=== PATIENT | female | born 1975 | race Hispanic/Latino ===

== ENCOUNTER 2019-11-19 09:35 | Emergency (ER) | payer SELFPAY ==
[~2019-11-19] VITALS: Ht 160 cm; Wt 68.0 kg
[2019-11-19] MEDS ORDERED: PANTOPRAZOLE 40 MG 10ML VIAL IV STA (09:56)
[2019-11-19] MEDS ORDERED: MORPHINE SULFATE 2 MG/ML SYR 1ML IV STA (09:56)
[2019-11-19] MEDS ORDERED: ONDANSETRON HCL INJ 2MG/ML 2ML 2 MG/ML VIAL IV STA (09:56)
[2019-11-19] MEDS ORDERED: SODIUM CHLORIDE 0.9% 1000ML 1,000 ML IV STA (09:56)
[2019-11-19 10:16] LABS: BASOPHILS % 0.2 % (0.0-1.0); EOSINOPHILS % 0.2 % (0.0-6.0); HEMATOCRIT 40.7 % (34.2-44.1); HEMOGLOBIN 13.4 g/dL (12.0-16.0); LYMPHOCYTES # (AUTO) 0.8 (1.0-3.2); LYMPHOCYTES % 8.1 % (18.0-39.1); MEAN CORPUSCULAR HEMOGLOBIN 30.7 pg (28-32); MEAN CORPUSCULAR HGB CONC 32.9 g/dL (31-35); MEAN CORPUSCULAR VOLUME 93.3 fL (81-99); MONOCYTES # (AUTO) 0.3 (0.2-0.8); MONOCYTES % 3.1 % (4.4-11.3); NEUTROPHILS # (AUTO) 8.5 (2.1-6.9); NEUTROPHILS % 86.8 % (38.7-80.0); PLATELET COUNT 219 x10e3/uL (140-360); RED BLOOD COUNT 4.36 x10e6/uL (3.6-5.1)
[2019-11-19 10:22] LABS: PREGNANCY TEST, URINE NEGATIVE (NEGATIVE)
[2019-11-19 10:25] LABS: CLARITY,URINE CLEAR (CLEAR); COLOR,URINE YELLOW (YELLOW); LEUKOCYTE ESTERASE ,URINE NEGATIVE (NEGATIVE); NITRITE,URINE NEGATIVE (NEGATIVE)
[2019-11-19 10:26] LABS: BILIRUBIN,URINE NEGATIVE (NEGATIVE); KETONES,URINE NEGATIVE (NEGATIVE); PROTEIN,URINE DIPSTICK NEGATIVE (NEGATIVE); URINE UROBILINOGEN 0.2 mg/dL (0.2 - 1)
[2019-11-19 10:36] LABS: ALANINE AMINOTRANSFERASE 18 IU/L (0-55); ALKALINE PHOSPHATASE 104 IU/L (40-150); AMYLASE 108 U/L (25-125); ANION GAP 13.8 mmol/L (8-16); BLOOD UREA NITROGEN 19 mg/dL (7-26); BUN/CREATININE RATIO 25 (6-25); CALCIUM 9.2 mg/dL (8.4-10.2); CARBON DIOXIDE 25 mmol/L (22-29); CHLORIDE 106 mmol/L (98-107); CREATINE KINASE 48 IU/L (29-168); CREATININE, SERUM 0.76 mg/dL (0.57-1.11); EST GLOMERULAR FILTRATION RATE > 60 ML/MIN (60-); GLUCOSE 157 mg/dL (74-118); LIPASE 91 U/L (8-78); MAGNESIUM 1.8 MG/DL (1.3-2.1); POTASSIUM 3.8 mmol/L (3.5-5.1); SODIUM 141 mmol/L (136-145)
[2019-11-19 10:38] LABS: BACTERIA,URINE MANY /HPF
[2019-11-19 10:39] LABS: EPITHELIAL CELLS,URINE MODERATE /LPF; MUCUS,URINE MANY (RARE)
[2019-11-19 10:44] LABS: INR 0.9; PARTIAL THROMBOPLASTIN TIME 26.1 seconds (23.8-35.5); PROTHROMBIN TIME 12.6 seconds (11.9-14.5)
--- NOTE | 2019-11-19 11:56 | Diagnostic Imaging Report ---
EXAM: Right upper quadrant abdominal ultrasound INDICATION: Right upper quadrant pain COMPARISON: None. TECHNIQUE: Transverse and longitudinal images of the right upper quadrant abdomen were obtained FINDINGS: Liver: Size: 14.3 cm in the right midclavicular line, normal Appearance: Normal echogenicity, smooth contour Mass: No focal masses Gallbladder: Cholelithiasis. No distention, pericholecystic fluid, wall thickening, or reported sonographic Magallanes's sign. Gallbladder wall measures 0.2 cm. Bile Ducts: Intrahepatic Ducts: No dilatation Extrahepatic Ducts: Common bile duct measures 0.4 cm, no dilatation Pancreas: Visualized portions of the pancreatic head, neck and proximal body are normal. Kidney: The right kidney measures 8.9 cm without evidence of hydronephrosis or stone. Vessels: Aorta: Visualized portions are normal Inferior Vena Cava: Visualized portions are normal Main Portal Vein: 1.1 cm, normal size with hepatopetal flow. Free Fluid: No evidence of ascites. IMPRESSION: Cholelithiasis without evidence of cholecystitis. Signed by: Dr. Tyesha Cardenas MD on 11/19/2019 11:53 AM
--- NOTE | 2019-11-19 12:47 | Emergency Department Note ---
History of Present Illnes History of Present Illness Chief Complaint: Abdominal Complaints History of Present Illness This is a 44 year old female PT C/O CHILLS AND ABDOMINAL PAIN WITH ASSOCIATED NAUSEA AND VOMITING THAT STARTED IN THE MIDDLE OF THE NIGHT LAST NIGHT, PT DENIES ANY ACUTE CHANGES WITH HER URINATION, LBM TODAY WAS AN HOUR AGO, PEPTO-BISMOL WAS TAKEN @ 0700 THIS MORNING . 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 Any updates have been documented here. Past Medical History Recent Fever: No Clinical Suspicion of Infectio: No New/Unexplained Change in Ment: No Past Medical History: None Past Surgical History: None Social History Smoking Cessation: Never Smoker Counseling Performed: No Alcohol Use: None Any Illegal Drug Use: No TB Exposure/Symptoms: No Physically hurt or threatened: No Family History Family history of heart diseas: No Other Any Pre-Existing Lines (PICC,: No Review of Systems Review of Systems Constitutional: Reports no symptoms EENTM: Reports no symptoms Cardiovascular: Reports no symptoms Respiratory: Reports no symptoms Gastrointestinal: Reports as per HPI, Reports nausea, Reports vomiting; Denies diarrhea Genitourinary: Reports no symptoms Musculoskeletal: Reports no symptoms Integumentary: Reports no symptoms Neurological: Reports no symptoms Psychological: Reports no symptoms Endocrine: Reports no symptoms Hematological/Lymphatic: Reports no symptoms Physical Exam Related Data Allergies: Coded Allergies: No Known Allergies (Unverified , 11/19/19) Triage Vital Signs Vital Signs Date Time Temp Pulse Resp B/P (MAP) Pulse Ox O2 Delivery O2 Flow Rate FiO2 11/19/19 09:42 98.0 76 18 134/87 100 Room Air Vital signs reviewed: Yes Physical Exam CONSTITUTIONAL Constitutional: Present well-developed, Present well-nourished, Present obese HENT HENT: Present normocephalic, Present atraumatic, Present oropharynx cl ear/moist, Present nose normal HENT L/R: Present left ext ear normal, Present right ext ear normal EYES Eyes: Reports PERRL, Reports conjunctivae normal NECK Neck: Present ROM normal PULMONARY Pulmonary: Present effort normal, Present breath sounds normal CARDIOVASCULAR Cardiovascular: Present regular rhythm, Present heart sounds normal, Present capillary refill normal, Present normal rate GASTROINTESTINAL Abdominal: Present soft, Present bowel sounds normal, Present tender (MOD TENDERNESS RUQ WITHOUT R/G/DELUNA'S) GENITOURINARY Genitourinary: Present exam deferred SKIN Skin: Present warm, Present dry MUSCULOSKELETAL Musculoskeletal: Present ROM normal NEUROLOGICAL Neurological: Present alert, Present oriented x 3, Present no gross motor or sensory deficits PSYCHOLOGICAL Psychological: Present mood/affect normal, Present judgement normal Results Laboratory Result Diagram: 11/19/19 0900 11/19/19 0900 Laboratory Laboratory Tests Test 11/19/19 09:00 White Blood Count 9.82 x10e3/uL (4.8-10.8) Red Blood Count 4.36 x10e6/uL (3.6-5.1) Hemoglobin 13.4 g/dL (12.0-16.0) Hematocrit 40.7 % (34.2-44.1) Mean Corpuscular Volume 93.3 fL (81-99) Mean Corpuscular Hemoglobin 30.7 pg (28-32) Mean Corpuscular Hemoglobin Concent 32.9 g/dL (31-35) Red Cell Distribution Width 13.0 % (11.7-14.4) Platelet Count 219 x10e3/uL (140-360) Neutrophils (%) (Auto) 86.8 % (38.7-80.0) Lymphocytes (%) (Auto) 8.1 % (18.0-39.1) Monocytes (%) (Auto) 3.1 % (4.4-11.3) Eosinophils (%) (Auto) 0.2 % (0.0-6.0) Basophils (%) (Auto) 0.2 % (0.0-1.0) Neutrophils # (Auto) 8.5 (2.1-6.9) Lymphocytes # (Auto) 0.8 (1.0-3.2) Monocytes # (Auto) 0.3 (0.2-0.8) Eosinophils # (Auto) 0.0 (0.0-0.4) Basophils # (Auto) 0.0 (0.0-0.1) Absolute Immature Granulocyte (auto 0.16 x10e3/uL (0-0.1) Prothrombin Time 12.6 seconds (11.9-14.5) Prothromb Time International Ratio 0.90 Activated Partial Thromboplast Time 26.1 seconds (23.8-35.5) Urine Color Yellow (YELLOW) Urine Clarity Clear (CLEAR) Urine pH 6 (5 - 7) Urine Specific [place] >=1.030 (1.010-1.025) Urine Protein Negative (NEGATIVE) Urine Glucose (UA) Negative (NEGATIVE) Urine Ketones Negative (NEGATIVE) Urine Blood Small (NEGATIVE) Urine Nitrite Negative (NEGATIVE) Urine Bilirubin Negative (NEGATIVE) Urine Urobilinogen 0.2 mg/dL (0.2 - 1) Urine Leukocyte Esterase Negative (NEGATIVE) Urine RBC 6-10 /HPF (0-5) Urine WBC 6-10 /HPF (0-5) Urine Epithelial Cells Moderate /LPF (NONE) Urine Bacteria Many /HPF (NONE) Urine Mucus Many (RARE) Urine Test Negative (NEGATIVE) Sodium Level 141 mmol/L (136-145) Potassium Level 3.8 mmol/L (3.5-5.1) Chloride Level 106 mmol/L (98-107) Carbon Dioxide Level 25 mmol/L (22-29) Anion Gap 13.8 mmol/L (8-16) Blood Urea Nitrogen 19 mg/dL (7-26) Creatinine 0.76 mg/dL (0.57-1.11) Estimat Glomerular Filtration Rate > 60 ML/MIN (60-) BUN/Creatinine Ratio 25 (6-25) Glucose Level 157 mg/dL (74-118) Calcium Level 9.2 mg/dL (8.4-10.2) Magnesium Level 1.8 MG/DL (1.3-2.1) Total Bilirubin 0.6 mg/dL (0.2-1.2) Aspartate Amino Transf (AST/SGOT) 17 IU/L (5-34) Alanine Aminotransferase (ALT/SGPT) 18 IU/L (0-55) Alkaline Phosphatase 104 IU/L (40-150) Creatine Kinase 48 IU/L (29-168) Creatine Kinase MB 0.70 ng/mL (0-5.0) Troponin I < 0.001 ng/mL (0-0.300) Total Protein 7.9 g/dL (6.5-8.1) Albumin 4.0 g/dL (3.5-5.0) Globulin 3.9 g/dL (2.3-3.5) Albumin/Globulin Ratio 1.0 (0.8-2.0) Amylase Level 108 U/L (25-125) Lipase 91 U/L (8-78) Lab results reviewed: Yes Imaging Imaging results reviewed: Yes Assessment & Plan Medical Decision Making MDM RUQ PAIN, N/V - CBC, CHEM, KAYLIE/LIPASE, UA, GB U/S - R/O CHOLECYSTITIS, PANCREATITIS, ELEV LFT'S, LEUKOCYTOSIS Reassessment Reassessment LIA ROSS, JANE AARON, F/U PCP AND DR BENNETT Assessment & Plan Final Impression: (1) Cholelithiases Depart Disposition: HOME, SELF-CARE Last Vital Signs Date Time Temp Pulse Resp B/P (MAP) Pulse Ox O2 Delivery O2 Flow Rate FiO2 11/19/19 11:40 74 16 154/80 98 Room Air 11/19/19 09:42 98.0 Medications in the ED Pantoprazole Sodium 40 mg ONCE STAT IV Last administered on 11/19/19at 10:57; Admin Dose 40 MG; Start 11/19/19 at 09:56; Stop 11/19/19 at 10:14; Status DC Morphine Sulfate 4 mg ONCE STAT IV Last administered on 11/19/19at 10:30; Admin Dose 4 MG; Start 11/19/19 at 09:56; Stop 11/19/19 at 10:14; Status DC Ondansetron HCl 4 mg ONCE STAT IV Last administered on 11/19/19at 10:30; Admin Dose 4 MG; Start 11/19/19 at 09:56; Stop 11/19/19 at 10:14; Status DC Sodium Chloride 1,000 ml @ 0 mls/hr Q0M STAT IV Last administered on 11/19/19at 10:58; Admin Dose 1,000 MLS/HR; Start 11/19/19 at 09:56; Stop 11/19/19 at 10:01; Status DC SARAH KEBEDE MD Nov 19, 2019 12:47
== END 2019-11-19 12:48 | disposition home or self-care (01) ==
LOC: ER 09:58
DX: R10.11 Right upper quadrant pain (principal); R11.2 Nausea with vomiting, unspecified; K80.20 Calculus of gallbladder without cholecystitis without obstruction
CPT/HCPCS: 36415; 76705; 80053; 81001; 81025; 82150; 82550; 82553; 83690; 83735; 84484; 85025; 85610; 85730; 87086; 93005; 99284; C9113; J2270; J2405; J7030

== ENCOUNTER 2019-12-01 13:24 | Observation (INO) | payer SELFPAY ==
[~2019-12-01] VITALS: Ht 160 cm; Wt 68.0 kg
[~2019-12-01 13:24] MED LIST: FENTANYL CITRATE/PF 100MCG/2 ML INJ ONE; MIDAZOLAM HCL 2 MG/2 ML VIAL ONE
[2019-12-01] MEDS ORDERED: SODIUM CHLORIDE 0.9% 1000ML 1,000 ML IV SCH (14:00)
[2019-12-01] MEDS ORDERED: MORPHINE SULFATE 2 MG/ML SYR 1ML IV PRN (14:00)
--- NOTE | 2019-12-01 14:00 | Emergency Department Note ---
History of Present Illnes History of Present Illness Chief Complaint: General Medicine Complaints History of Present Illness This is a 44 year old female Chief Complaint Comment Patient in from home with complaints of midline abdominal pain, nausea and vomiting since 0600 this morning. Patient also complains of chills but denies fever at home and is afebrile in triage. Patient appears in pain. Patient was here for the same complaints on 11/19/2019 and states that the symptoms resolved and returned today. Historian: Patient Arrival Mode: Car Home Health Caregiver Required: No Onset (how long ago): hour(s) (8) Location: Epigastric, RUQ Quality: Sharp Radiation: Reports non-radiation Severity: severe Onset quality: sudden Duration (how long): hour(s) Timing of current episode: constant Progression: worsening Chronicity: recurrent Context: Denies recent illness, Denies recent surgery Relieving factors: none Exacerbating factors: none Associated symptoms: Reports denies other symptoms Treatments prior to arrival: none Past Medical/Family History Physician Review I have reviewed the patient's past medical and family history. Any updates have been documented here. Past Medical History Recent Fever: No Clinical Suspicion of Infectio: No New/Unexplained Change in Ment: No Past Medical History: None Past Surgical History: None Review of Systems Review of Systems Constitutional: Reports no symptoms EENTM: Reports no symptoms Cardiovascular: Reports no symptoms Respiratory: Reports no symptoms Gastrointestinal: Reports as per HPI, Reports abdominal pain, Reports nausea, Reports vomiting Genitourinary: Reports no symptoms Musculoskeletal: Reports no symptoms Integumentary: Reports no symptoms Neurological: Reports no symptoms Psychological: Reports no symptoms Endocrine: Reports no symptoms Hematological/Lymphatic: Reports no symptoms Physical Exam Related Data Allergies: Coded Allergies: No Known Allergies (Unverified , 11/19/19) Triage Vital Signs Vital Signs Date Time Temp Pulse Resp B/P (MAP) Pulse Ox O2 Delivery O2 Flow Rate FiO2 12/01/19 13:40 98.1 76 17 135/80 100 Room Air Vital signs reviewed: Yes Physical Exam CONSTITUTIONAL Constitutional: Present well-developed, Present well-nourished HENT HENT: Present normocephalic, Present atraumatic, Present oropharynx clear/moist, Present nose normal HENT L/R: Present left ext ear normal, Present right ext ear normal EYES Eyes: Reports PERRL, Reports conjunctivae normal NECK Neck: Present ROM normal PULMONARY Pulmonary: Present effort normal, Present breath sounds normal CARDIOVASCULAR Cardiovascular: Present regular rhythm, Present heart sounds normal, Present capillary refill normal, Present normal rate GASTROINTESTINAL Abdominal: Present soft, Present bowel sounds normal, Present tender (Epigastrium) GENITOURINARY Genitourinary: Present exam deferred SKIN Skin: Present warm, Present dry MUSCULOSKELETAL Musculoskeletal: Present ROM normal NEUROLOGICAL Neurological: Present alert, Present oriented x 3, Present no gross motor or sensory deficits PSYCHOLOGICAL Psychological: Present mood/affect normal, Present judgement normal Results Laboratory Lab results reviewed: Yes Imaging Imaging results reviewed: Yes Assessment & Plan Medical Decision Making MDM 44 y.o F PMH of galstones. Did not follow up from last visit. RUQ/epigastric pain. RUQ US and labs show cholelithiasis. Will admit for symptomatic chol elithiasis to Dr. Shay. Dr. Nilson palomo consulted. Reassessment Reassessment time: 16:32 Reassessment Well appearing, NAD Assessment & Plan Final Impression: (1) Cholelithiasis Depart Disposition: ADMITTED Last Vital Signs Date Time Temp Pulse Resp B/P (MAP) Pulse Ox O2 Delivery O2 Flow Rate FiO2 12/01/19 13:40 98.1 76 17 135/80 100 Room Air Medications in the ED Ondansetron HCl 4 mg Q4H PRN IV NAUSEA AND VOMITING; Start 12/01/19 at 14:00; Stop 12/31/19 at 13:59; Status UNV Sodium Chloride 1,000 ml @ 100 mls/hr Q10H IV ; Start 12/01/19 at 14:00; Stop 12/31/19 at 13:59; Status UNV Morphine Sulfate 4 mg Q4H PRN IV pain; Start 12/01/19 at 14:00; Stop 12/08/19 at 13:59; Status UNV MITCH GARZON MD Dec 01, 2019 14:00
[2019-12-01 14:12] LABS: BASOPHILS % 0.2 % (0.0-1.0); HEMATOCRIT 40.5 % (34.2-44.1); HEMOGLOBIN 13.1 g/dL (12.0-16.0); LYMPHOCYTES # (AUTO) 0.4 (1.0-3.2); LYMPHOCYTES % 4.5 % (18.0-39.1); MEAN CORPUSCULAR HEMOGLOBIN 30.2 pg (28-32); MEAN CORPUSCULAR HGB CONC 32.3 g/dL (31-35); MEAN CORPUSCULAR VOLUME 93.3 fL (81-99); MONOCYTES # (AUTO) 0.2 (0.2-0.8); MONOCYTES % 1.7 % (4.4-11.3); NEUTROPHILS # (AUTO) 8.3 (2.1-6.9); PLATELET COUNT 257 x10e3/uL (140-360); RED BLOOD COUNT 4.34 x10e6/uL (3.6-5.1); RED CELL DISTRIBUTION WIDTH 12.9 % (11.7-14.4)
[2019-12-01] MEDS: ONDANSETRON HCL INJ 2MG/ML 2ML 2 MG/ML VIAL IV PRN ×2 (14:12→17:31)
[2019-12-01] MEDS ORDERED: MORPHINE SULFATE INJ 4 MG/ML INJ 1ML IV PRN (14:15)
--- NOTE | 2019-12-01 14:28 | NUR ---
u.s in room at this time
[2019-12-01 14:36] LABS: ALANINE AMINOTRANSFERASE 22 IU/L (0-55); ALBUMIN/GLOBULIN RATIO 1.1 (0.8-2.0); ALKALINE PHOSPHATASE 103 IU/L (40-150); ANION GAP 12.9 mmol/L (8-16); BLOOD UREA NITROGEN 16 mg/dL (7-26); BUN/CREATININE RATIO 22 (6-25); CARBON DIOXIDE 22 mmol/L (22-29); CHLORIDE 107 mmol/L (98-107); CREATININE, SERUM 0.74 mg/dL (0.57-1.11); EST GLOMERULAR FILTRATION RATE > 60 ML/MIN (60-); GLUCOSE 158 mg/dL (74-118); POTASSIUM 3.9 mmol/L (3.5-5.1); SODIUM 138 mmol/L (136-145)
[2019-12-01 14:51] LABS: LIPASE 14 U/L (8-78)
--- NOTE | 2019-12-01 14:52 | Diagnostic Imaging Report ---
EXAM: US GALLBLADDER DATE: 12/01/2019 2:19 PM INDICATION: Right upper quadrant pain COMPARISON: Right upper quadrant ultrasound from 11/19/2019 FINDINGS: The pancreas is not well-visualized secondary to prominent overlying bowel gas. The visualized portions appear grossly unremarkable. The liver is normal in size measuring 13.7 cm in length. Hepatic echogenicity is within normal limits. No focal hepatic abnormality is identified. The main portal vein is patent with Diameter 0.9 cm, within normal limits. Again identified is a shadowing stone within the lumen of the gallbladder. There is no evidence for gallbladder distention, wall thickening, or pericholecystic fluid. There is no intra or extrahepatic biliary ductal dilatation. The common bile duct measures 4 mm. Sonographic Magallanes's sign is negative. The right kidney is normal in size measuring 8.4 cm in length with normal cortical thickness and echogenicity. There is no evidence for solid renal mass, hydronephrosis, or shadowing calculi within the right kidney. The visualized portions of the IVC and aorta are within normal limits. There is no ascites visualized within the right upper quadrant. IMPRESSION: Cholelithiasis without sonographic evidence for acute cholecystitis. Signed by: Dr. Timothy Martino MD on 12/01/2019 2:49 PM
[2019-12-01 14:58] LABS: HCG,QUANTITATIVE < 1.20 mIU/mL (0-10)
--- OUTSIDE RECORDS SUMMARY | 2019-12-01 15:06 | XMS REPORT | Continuity of Care Document ---
Author Author [facility] t Organization [facility] Address 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 Social History Social Habit Start Date Stop Date Quantity Comments Source Sex Assigned At 1975 00:00:00 1975 00:00:00 Female [facility] Medications This patient has no known medications. Vital Signs Vital Name Observation Time Observation Value Comments Source Weight 2019-11-19 09:42:00 150 [lb_av] [facility] BMI (Body Mass Index) 2019-11-19 09:42:00 26.6 kg/m2 [facility] Procedures Procedure Date / Time Performed Performing Clinician Roel e US Gallbladder 2019-11-19 00:00:00 [facility] Plan of Care Planned Activity Planned Date Details Comments Source Instructions Abdominal Pain - Adult [facility] Encounters Start Date/Time End Date/Time Encounter Type Admission Type [facility] Care Department Encounter ID Source 2019-11-19 09:58:00 2019-11-19 09:58:00 Registered Emergency Room 1 SARAH KEBEDE [facility] [id number] [facility] Results Test Description Test Time Test Comments Results Result Comments Source US GALLBLADDER 2019-12-01 14:45:00 [facility] 1975 Sex: F [place] [address] Patient Name: RIGOBERTO HEARN MR #: [id number] : 1975 Age/Sex: 44/F Req #: [id number] [facility] Physician: Ordered by: Mitch Amado MD Report #: [id number] Location: ER Room/Bed: Procedure: [id number] US/US GALLBLADDER Exam Date: 12/01/19 Exam Time: 1419 REPORT STATUS: Signed EXAM: US GALLBLADDER DATE: 1 2:19 PM INDICATION: Right upper quadrant pain COMPARISON: Right upper quadrant ultrasound from 11/19/2019 FINDINGS: The pancreas is not well-visualized secondary to prominent overlying bowel gas. The visualized portions appear grossly unremarkable. The liver is normal in size measuring 13.7 cm in length. Hepatic echogenicity is within normal limits. No focal hepatic abnormality is identified. The main portal vein is patent with Diameter 0.9 cm, within normal limits. Again identified is a shadowing stone within the lumen of the gallbladder. There is no evidence for gallbladder distention, wall thickening, or pericholecystic fluid. There is no intra or extrahepatic biliary ductal dilatation. The common bile duct measures 4 mm. Sonographic Magallanes's sign is negative. The right kidney is normal in size measuring 8.4 cm in length with normal cortical thickness and echogenicity. There is no evidence for solid renal mass, hydronephrosis, or shadowing calculi within the right kidney. The visualized portions of the IVC and aorta are within normal limits. There is no ascites visualized within the right upper quadrant. IMPRESSION: Cholelithiasis without sonographic evidence for acute cholecystitis. Signed by: Dr. Timothy Martino MD on 12/01/2019 2:49 PM Dictated By: TIMOTHY MARTINO MD 48 Transcribed By: VARGHESE on 12/01/191448 COPY TO: MITCH AMADO MD GALLBLADDER 2019-11-19 11:48:00 [place] [address] Patient Name: RIGOBERTO HEARN MR #: [id number] : 1975 Age/Sex: 44/F Req #: [id number] Adm Physician: Ordered by: SARAH KEBEDE MD Report #: [id number] Location: ER Room/Bed: Procedure: [id number] US/US GALLBLADDER Exam Date: 11/19/19 Exam Time: 1131 REPORT STATUS: Signed EXAM: Right upper quadrant abdominal ultrasound INDICATION: Right upper quadrant pain COMPARISON: None. TECHNIQUE: Transverse and longitudinal images of the right upper quadrant abdomen were obtained FINDINGS: Liver: Size: 14.3 cm in the rig ht midclavicular line, normal Appearance: Normal echogenicity, smooth contour Mass: No focal masses Gallbladder: Cholelithiasis. No distention, pericholecystic fluid, wall thickening, or reported sonographic Magallanes's sign. Gallbladder wall measures 0.2 cm. Bile Ducts: Intrahepatic Ducts: No dilatation Extrahepatic Ducts: Common bile duct measures 0.4 cm, no dilatation Pancreas: Visualized portions of the pancreatic head, neck and proximal body are normal. Kidney: The right kidney measures 8.9 cm without evidence of hydronephrosis or stone. Vessels: Aorta: Visualized portions are normal Inferior Vena Cava: Visualized portions are normal Main Portal Vein: 1.1 cm, normal size with hepatopetal flow. Free Fluid: No evidence of ascites. IMPRESSION: Cholelithiasis without evidence of cholecystitis. Signed by: Dr. Ernestina Zhou MD on 11/19/2019 11:53 AM Dictated By: ERNESTINA ZHOU MD 1153 Transcribed By: VARGHESE on 11/19/19 1153 COPY TO: SARAH KEBEDE MD Blood leukocytes automated count (number/volume) 2019-11-19 09:00:00 Test Item White Blood Count (test code = 6690-2) 9.82 4.8-10.8 [facility] erythrocytes automated count (number/volume)2019-11-19 09:00:00* Test Item Value Reference Range Interpretation Comments Red Blood Count (test code = 789-8) 4.36 3.6-5.1 [facility] hemoglobin measurement (moles/volume)2019-11-19 09:00:00* Test Item Value Reference Range Interpretation Comments Hemoglobin (test code = 43620-4) 13.4 12.0-16.0 [facility]iscoAutomated blood hematocrit (volume fraction)2019-11-19 09:00:00* Test Item Value Reference Range Interpretation Comments Hematocrit (test code = 4544-3) 40.7 34.2-44.1 [facility]iscoAutomated erythrocyte mean corpuscular cyhkhz6543-16-57 09:00:00* Test Item Value Reference Range Interpretation Comments Mean Corpuscular Volume (test code = 787-2) 93.3 81-99 [facility]isco[facility] erythrocyte mean corpuscular hemoglobin (mass per erythrocyte)2019-11-19 09:00:00* Test Item Value Reference Range Interpretation Comments Mean Corpuscular Hemoglobin (test code = 785-6) 30.7 28-32 [facility]isco[facility] erythrocyte mean corpuscular hemoglobin concentration measurement (mass/volume)2019-11-19 09:00:00* Test Item Value Reference Range Interpretation Comments Mean Corpuscular Hemoglobin Concent (test code = 786-4) 32.9 31-35 [facility] FriscoRDW ZdvWb-[id number] 09:00:00* Test Item Value Reference Range Interpretation Comments Red Cell Distribution Width (test code = 58524-6) 13.0 11.7 -14.4 [facility]iscoAutom[facility] blood platelet count (count/volume)2019-11-19 09:00:00* Test Item Value Reference Range Interpretation Comments Platelet Count (test code = 777-3) 219 140-360 [facility]iscoAutomated blood segmented neutrophil count as percentage of total fpnekuhxiq4580-80-17 09:00:00* Test Item Value Reference Range Interpretation Comments Neutrophils (%) (Auto) (test code = 34592-5) 86.8 38.7-80.0 [facility]iscoAutom[facility] blood lymphocyte count as percentage ot total zwggmtfskh1563-93-93 09:00:00* Test Item Value Reference Range Interpretation Comments Lymphocytes (%) (Auto) (test code = 736-9) 8.1 18.0-39.1 [facility]isco[facility] blood monocyte count as percentage of total ffbuaerfqv3220-42-19 09:00:00* Test Item Value Reference Range Interpretation Comments Monocytes (%) (Auto) (test code = 5905-5) 3.1 4.4-11.3 [facility]isco[facility] blood eosinophil count as percentage of total zszaxrbzxc2216-83-10 09:00:00* Test Item Value Reference Range Interpretation Comments Eosinophils (%) (Auto) (test code = 713-8) 0.2 0.0-6.0 [facility]iscoAutom[facility] blood basophil count as percentage of total jjrioqstpb1479-68-74 09:00:00* Test Item Value Reference Range Interpretation Comments Basophils (%) (Auto) (test code = 706-2) 0.2 0.0-1.0 [facility] FriscoFluoroscopic procedure less than one hour gsfsqngg9563-09-30 09:00:00* Test Item Value Reference Range Interpretation Comments IM GRANULOCYTES % (test code = IM GRANULOCYTES %) 1.6 0.0- 1.0 [facility]iscoAutomated blood neutrophil count 2019-11-19 09:00:00* Test Item Value Reference Range Interpretation Comments Neutrophils # (Auto) (test code = 751-8) 8.5 2.1-6.9 [facility]iscoBlood lymphocytes count (number/volume) 2019-11-19 09:00:00* Test Item Value Reference Range Interpretation Comments Lymphocytes # (Auto) (test code = 18303-2) 0.8 1.0-3.2 [facility]iscoBlood monocytes automated count (number/volume)2019-11-19 09:00:00* Test Item Value Reference Range Interpretation Comments Monocytes # (Auto) (test code = 742-7) 0.3 0.2-0.8 [facility]iscoAutomated blood eosinophil count 2019-11-19 09:00:00* Test Item Value Reference Range Interpretation Comments Eosinophils # (Auto) (test code = 711-2) 0.0 0.0-0.4 [facility]iscoAutomated blood basophil count (count/volume)2019-11-19 09:00:00* Test Item Value Reference Range Interpretation Comments Basophils # (Auto) (test code = 704-7) 0.0 0.0-0.1 [facility]iscoFluoroscopic procedure less than one hour [id number] 09:00:00* Test Item Value Reference Range Interpretation Comments Absolute Immature Granulocyte (auto (kely t code = Absolute Immature Granulocyte (auto) 0.16 0-0.1 [facility]iscoProthrombin time (PT) in platelet poor plasma by coagulation sqdgp0181-05-99 09:00:00* Test Item Value Reference Range Interpretation Comments Prothrombin Time (test code = 5902-2) 12.6 11.9-14.5 [facility] FriscoINR in Platelet poor plasma by Coagulation [id number] 09:00:00* Test Item Value Reference Range Interpretation Comments Prothromb Time International Ratio (test code = 6301-6) 0.90 Oral Anticoagulant Therapy INR Values:1. Low Intensity Therapy 1.5 - 2.02 . Moderate Intensity Therapy 2.0 - 3.03. High Intensity Therapy(1) 2.5 - 3. 54. High Intensity Therapy(2) 3.0 - 4.05. Panic Value INR > 5.0 [facility] FriscoActivated partial thromboplastin time (aPTT) in platelet poor plasma by coagulation gybjc2781-48-07 09:00:00* Test Item Value Reference Range Interpretation Comments Activated Partial Thromboplast Time (test code = 93526-2) 26.1 23.8-35.5 [facility] FriscoUrine color wbpbbefyoknbe0177-35-16 09:00:00* Test Item Value Reference Range Interpretation Comments Urine Color (test code = 5778-6) YELLOW YELLOW [facility] FriscoUrine rukhthi3440-08-15 09:00:00* Test Item Value Reference Range Interpretation Comments Urine Clarity (test code = 04745-3) CLEAR CLEAR [facility]pecific gravity of Urine by Test strip 2019-11-19 09:00:00* Test Item Value Reference Range Interpretation Comments Urine Specific [place] (test code = 5811-5) >=1.030 1.010-1.02 5 [facility]iscoUrine pH measurement by automated test [id number] 09:00:00* Test Item Value Reference Range Interpretation Comments Urine pH (test code = 63749-1) 6 5-7 [facility] FriscoUrine leukocyte esterase detection by tzzjechv2047-49-24 09:00:00* Test Item Value Reference Range Interpretation Comments Urine Leukocyte Esterase (test code = 5799-2) NEGATIVE NEGATIVE [facility]iscoUrine nitrite tdxjqswnj0934-13-17 09:00:00* Test Item Value Reference Range Interpretation Comments Urine Nitrite (test code = 00323-5) NEGATIVE NEGATIVE [facility] FriscoUrine protein measurement by test strip (mass/volume)2019-11-19 09:00:00* Test Item Value Reference Range Interpretation Comments Urine Protein (test code = 5804-0) NEGATIVE NEGATIVE [facility] FriscoUrine glucose oqgaqxkib6830-13-09 09:00:00* Test Item Value Reference Range Interpretation Comments Urine Glucose (UA) (test code = 2349-9) NEGATIVE NEGATIVE [facility] FriscoUrine ketones detection by automated test qcneo1604-55-98 09:00:00* Test Item Value Reference Range Interpretation Comments Urine Ketones (test code = 00737-2) NEGATIVE NEGATIVE [facility] FriscoUrine urobilinogen measurement by test strip (mass/volume)2019-11-19 09:00:00* Test Item Value Reference Range Interpretation Comments Urine Urobilinogen (test code = 07395-4) 0.2 0.2-1 [facility]iscoUrine total bilirubin measurement (mass/volume)2019-11-19 09:00:00* Test Item Value Reference Range Interpretation Comments Urine Bilirubin (test code = 1978-6) NEGATIVE NEGATIVE [facility] FriscoUrine erythrocytes meiytpfkq9312-40-55 09:00:00* Test Item Value Reference Range Interpretation Comments Urine Blood (test code = 52147-8) SMALL NEGATIVE [facility] FriscoAutomated urine sediment leukocyte count by microscopy (number/high power field)2019-11-19 09:00:00* Test Item Value Reference Range Interpretation Comments Urine WBC (test code = 5821-4) 6-10 0-5 [facility] FriscoErythrocytes detection in urine sediment by light drnxbclrmk1838-49-81 09:00:00* Test Item Value Reference Range Interpretation Comments Urine RBC (test code = 77153-5) 6-10 0-5 [facility]iscoBacteria detection in urine sediment by light cdqapqqvfk1138-63-38 09:00:00* Test Item Value Reference Range Interpretation Comments Urine Bacteria (test code = 66027-3) MANY NONE [facility] FriscoEpithelial cells detection in urine sediment by light ymdwljiopd9066-96-26 09:00:00* Test Item Value Reference Range Interpretation Comments Urine Epithelial Cells (test code = 16433-2) MODERATE NONE [facility] FriscoMucus detection in urine sediment by light kvognavcit9927-21-05 09:00:00* Test Item Value Reference Range Interpretation Comments Urine Mucus (test code = 8247-9) MANY RARE [facility] FriscoUrine human chorionic gonadotropin (hCG) nfxqncskt1580-57-30 09:00:00* Test Item Value Reference Range Interpretation Comments Urine Test (test code = 2106-3) NEGATIVE NEGATIVE [facility]viewerum or plasma sodium measurement (moles/volume)2019-11-19 09:00:00* Test Item Value Reference Range Interpretation Comments Sodium Level (test code = 2951-2) 141 136-145 [facility]viewerum or plasma potassium measurement (moles/volume)2019-11-19 09:00:00* Test Item Value Reference Range Interpretation Comments Potassium Level (test code = 2823-3) 3.8 3.5-5.1 [facility]viewerum or plasma chloride measurement (moles/volume)2019-11-19 09:00:00* Test Item Value Reference Range Interpretation Comments Chloride Level (test code = 2075-0) 106 98-107 [facility]viewerum or plasma carbon dioxide, total measurement (moles/volume)2019-11-19 09:00:00* Test Item Value Reference Range Interpretation Comments Carbon Dioxide Level (test code = 2028-9) 25 22-29 [facility]viewerum or plasma anion [id number] 09:00:00* Test Item Value Reference Range Interpretation Comments Anion Gap (test code = 55882-3) 13.8 8-16 [facility]viewerum or plasma urea nitrogen measurement (mass/volume)2019-11-19 09:00:00* Test Item Value Reference Range Interpretation Comments Blood Urea Nitrogen (test code = 3094-0) 19 7-26 [facility]viewerum or plasma creatinine measurement (mass/volume)2019-11-19 09:00:00* Test Item Value Reference Range Interpretation Comments Creatinine (test code = 2160-0) 0.76 0.57-1.11 [facility]viewerum or plasma urea nitrogen/creatinine mass aeder2283-51-12 09:00:00* Test Item Value Reference Range Interpretation Comments BUN/Creatinine Ratio (test code = 3097-3) 25 6-25 [facility] FriscoEstimated glomerular filtration rate (GFR) wglutbfulczjf9920-28-65 09:00:00* Test Item Value Reference Range Interpretation Comments Estimat Glomerular Filtration Rate (test code = 410488319) > 60 >60 Ranges were taken from the National Kidney Disease Education Program and the [facility] Kidney Foundation literature.Reference ranges:60 or greater: Yixkqt63-67 ( for 3 consecutive months): Chronic kidney disease 15 or less: Kidney failureBaylor Scott and [facility] Center – FriscoGlucose aaizrysjqgb5346-33-42 09:00:00* Test Item Value Reference Range Interpretation Comments Glucose Level (test code = ZKT5181) 157 74-118 [facility]viewerum or plasma calcium measurement (mass/volume)2019-11-19 09:00:00* Test Item Value Reference Range Interpretation Comments Calcium Level (test code = 69709-6) 9.2 8.4-10.2 [facility]viewerum or plasma magnesium measurement (mass/volume)2019-11-19 09:00:00* Test Item Value Reference Range Interpretation Comments Magnesium Level (test code = 61104-8) 1.8 1.3-2.1 [facility]viewerum or plasma total bilirubin measurement (mass/volume)2019-11-19 09:00:00* Test Item Value Reference Range Interpretation Comments Total Bilirubin (test code = 1975-2) 0.6 0.2-1.2 [facility] FriscoFluoroscopic procedure less than one hour rnfjzrvx1217-59-18 09:00:00* Test Item Value Reference Range Interpretation Comments Aspartate Amino Transf (AST/SGOT) (test code = Aspartate Amino Transf (AST/SGOT)) 17 5-34 [facility]viewerum or plasma alanine aminotransferase measurement (enzymatic activity/volume)2019-11-19 09:00:00* Test Item Value Reference Range Interpretation Comments Alanine Aminotransferase (ALT/SGPT) (test code = 1742-6) 18 0-55 [facility]viewerum or plasma protein measurement (mass/volume)2019-11-19 09:00:00* Test Item Value Reference Range Interpretation Comments Total Protein (test code = 2885-2) 7.9 6.5-8.1 [facility]viewerum or plasma albumin measurement (mass/volume)2019-11-19 09:00:00* Test Item Value Reference Range Interpretation Comments Albumin (test code = 1751-7) 4.0 3.5-5.0 [facility] FriscoPlasma globulin measurement (mass/volume) 2019-11-19 09:00:00* Test Item Value Reference Range Interpretation Comments Globulin (test code = 79296-7) 3.9 2.3-3.5 [facility]viewerum or plasma albumin/globulin mass zxqkb9395-88-31 09:00:00* Test Item Value Reference Range Interpretation Comments Albumin/Globulin Ratio (test code = 1759-0) 1.0 0.8-2.0 [facility]viewerum or plasma alkaline phosphatase measurement (enzymatic activity/volume)2019-11-19 09:00:00* Test Item Value Reference Range Interpretation Comments Alkaline Phosphatase (test code = 6768-6) 104 40-150 [facility]viewerum or plasma creatine kinase measurement (enzymatic activity/volume)2019-11-19 09:00:00* Test Item Value Reference Range Interpretation Comments Creatine Kinase (test code = 2157-6) 48 29-168 [facility]viewerum or plasma creatine kinase MB measurement (mass/volume)2019-11-19 09:00:00* Test Item Value Reference Range Interpretation Comments Creatine Kinase MB (test code = 52893-3) 0.70 0-5.0 [facility]iscoTroponin I measurement by highly sensitive enzyme eepgjlzqcqw7353-69-44 09:00:00* Test Item Value Reference Range Interpretation Comments Troponin I (test code = 06983-3) < 0.001 0-0.[address] [facility]Ser[facility] or plasma amylase measurement (enzymatic activity/volume)2019-11-19 09:00:00* Test Item Value Reference Range Interpretation Comments Amylase Level (test code = 1798-8) 108 25-125 [facility]viewerum or plasma lipase measurement (enzymatic activity/volume)2019-11-19 09:00:00* Test Item Value Reference Range Interpretation Comments Lipase (test code = 3040-3) 91 8-78 [facility]
[2019-12-01] MEDS ORDERED: LEVOFLOXACIN 500MG/D5W 100ML 100 ML IV ONE (16:00)
[2019-12-01] MEDS ORDERED: LEVOFLOXACIN 500MG/D5W 100ML 100 ML IV STA (16:06)
--- OUTSIDE RECORDS SUMMARY | 2019-12-01 16:25 | XMS REPORT | Continuity of Care Document ---
Author Author [facility] t Organization [facility] Address [address] [place] [address] Phone Unavailable Care Team Providers Care Manager Call Center Name Role Phone NONSTAFF PCP Unavailable Destin Amado Attphys Unavailable Yosef KEBEDE Attphys Unavailable Problems Condition Name Condition Details Condition Category Status Onset Date Resolution Date Last Treatment Date Treating Clinician Comments Source Cholelithiasis Problem Active C [facility] Allergies, Adverse Reactions, Alerts This patient has no known allergies or adverse reactions. Social History Social Habit Start Date Stop Date Quantity Comments Source Sex Assigned At 1975 00:00:00 1975 00:00:00 Female [facility] Medications This patient has no known medications. Vital Signs Vital Name Observation Time Observation Value Comments Source Weight 2019-11-19 09:42:00 150 [lb_av] [facility] BMI (Body Mass Index) 2019-11-19 09:42:00 26.6 kg/m2 [facility] Procedures Procedure Date / Time Performed Performing Clinician Roel e US Gallbladder 2019-11-19 00:00:00 [facility] Plan of Care Planned Activity Planned Date Details Comments Source Instructions Abdominal Pain - Adult [facility] Encounters Start Date/Time End Date/Time Encounter Type Admission Type Attendi [facility] Facility Care Department Encounter ID Source 2019-11-19 09:58:00 2019-11-19 09:58:00 Registered Emergency Room 1 SARAH KEBEDE [facility] [id number] I [facility] Results Test Description Test Time Test Comments Results Result Comments Source US GALLBLADDER 2019-12-01 14:45:00 [facility]IGOBERT[facility] HEARN : 1975 Sex: F [place] [address] Patient Name: RIGOBERTO HEARN MR #: [id number] : 1975 Age/Sex: 44/F Req #: [id number] [facility] Physician: Ordered by: Mitch Amado MD Report #: [id number] Location: ER Room/Bed: Procedure: [id number] US/US GALLBLADDER Exam Date: 12/01/19 Exam Time: [...] TO: MITCH AMADO MD GALLBLADDER 2019-11-19 11:48:00 [place] [address] Patient Name: RIGOBERTO HEARN MR #: [id number] : 1975 Age/Sex: 44/F Req #: [id number] Adm Physician: Ordered by: SARAH KEBEDE MD Report #: [id number] Location: ER Room/Bed: Procedure: [id number] US/US GALLBLADDER Exam Date: 11/19/19 Exam Time: [...] Count (test code = 6690-2) 9.82 4.8-10.8 [facility] automated count (number/volume)2019-11-19 09:00:00* Test Item Value Reference Range Interpretation Comments Red Blood Count (test code = 789-8) 4.36 3.6-5.1 [facility] hemoglobin measurement (moles/volume)2019-11-19 09:00:00* Test Item Value Reference Range Interpretation Comments Hemoglobin (test code = 59006-6) 13.4 12.0-16.0 [facility] AntonioAutomated blood hematocrit (volume fraction)2019-11-19 09:00:00* Test Item Value Reference Range Interpretation Comments Hematocrit (test code = 4544-3) 40.7 34.2-44.1 [facility] AntonioAutomated erythrocyte mean corpuscular xhtxhq5370-36-43 09:00:00* Test Item Value Reference Range Interpretation Comments Mean Corpuscular Volume (test code = 787-2) 93.3 81-99 [facility] AntonioAutomated erythrocyte mean corpuscular hemoglobin (mass per erythrocyte)2019-11-19 09:00:00* Test Item Value Reference Range Interpretation Comments Mean Corpuscular Hemoglobin (test code = 785-6) 30.7 28-32 [facility] AntonioAutomated erythrocyte mean corpuscular hemoglobin concentration measurement (mass/volume)2019-11-19 09:00:00* Test Item Value Reference Range Interpretation Comments Mean Corpuscular Hemoglobin Concent (test code = 786-4) 32.9 31-35 [facility] AntonioRDW PguYy-Ubs6233-65-04 09:00:00* Test Item Value Reference Range Interpretation Comments Red Cell Distribution Width (test code = 72778-4) 13.0 11.7 -14.4 [facility] AntonioAutomated blood platelet count (count/volume)2019-11-19 09:00:00* Test Item Value Reference Range Interpretation Comments Platelet Count (test code = 777-3) 219 140-360 [facility] AntonioAutomated blood segmented neutrophil count as percentage of total zscpixycqn6459-41-43 09:00:00* Test Item Value Reference Range Interpretation Comments Neutrophils (%) (Auto) (test code = 15615-0) 86.8 38.7-80.0 [facility] AntonioAutomated blood lymphocyte count as percentage ot total occqalexkl8192-79-06 09:00:00* Test Item Value Reference Range Interpretation Comments Lymphocytes (%) (Auto) (test code = 736-9) 8.1 18.0-39.1 [facility] AntonioAutomated blood monocyte count as percentage of total imvnlmdmuw8240-49-61 09:00:00* Test Item Value Reference Range Interpretation Comments Monocytes (%) (Auto) (test code = 5905-5) 3.1 4.4-11.3 [facility] AntonioAutomated blood eosinophil count as percentage of total jijdsvvksc3067-15-16 09:00:00* Test Item Value Reference Range Interpretation Comments Eosinophils (%) (Auto) (test code = 713-8) 0.2 0.0-6.0 [facility] AntonioAutomated blood basophil count as percentage of total khjdkxddqh6046-74-66 09:00:00* Test Item Value Reference Range Interpretation Comments Basophils (%) (Auto) (test code = 706-2) 0.2 0.0-1.0 [facility] AntonioFluoroscopic procedure less than one hour qeaigmmt6856-95-87 09:00:00* Test Item Value Reference Range Interpretation Comments IM GRANULOCYTES % (test code = IM GRANULOCYTES %) 1.6 0.0- 1.0 [facility] AntonioAutomated blood neutrophil count 2019-11-19 09:00:00* Test Item Value Reference Range Interpretation Comments Neutrophils # (Auto) (test code = 751-8) 8.5 2.1-6.9 [facility] AntonioBlood lymphocytes count (number/volume) 2019-11-19 09:00:00* Test Item Value Reference Range Interpretation Comments Lymphocytes # (Auto) (test code = 38211-4) 0.8 1.0-3.2 [facility] AntonioBlood monocytes automated count (number/volume)2019-11-19 09:00:00* Test Item Value Reference Range Interpretation Comments Monocytes # (Auto) (test code = 742-7) 0.3 0.2-0.8 [facility] AntonioAutomated blood eosinophil count 2019-11-19 09:00:00* Test Item Value Reference Range Interpretation Comments Eosinophils # (Auto) (test code = 711-2) 0.0 0.0-0.4 [facility] AntonioAutomated blood basophil count (count/volume)2019-11-19 09:00:00* Test Item Value Reference Range Interpretation Comments Basophils # (Auto) (test code = 704-7) 0.0 0.0-0.1 [facility] AntonioFluoroscopic procedure less than one hour sqrcnqng0961-84-95 09:00:00* Test Item Value Reference Range Interpretation Comments Absolute Immature Granulocyte (auto (kely t code = Absolute Immature Granulocyte (auto) 0.16 0-0.1 [facility] AntonioProthrombin time (PT) in platelet poor plasma by coagulation ebquj1705-02-10 09:00:00* Test Item Value Reference Range Interpretation Comments Prothrombin Time (test code = 5902-2) 12.6 11.9-14.5 [facility] AntonioINR in Platelet poor plasma by Coagulation xkdym6257-78-15 09:00:00* Test Item Value Reference Range Interpretation Comments Prothromb Time International Ratio (test code = 6301-6) 0.90 Oral Anticoagulant Therapy INR Values:1. Low Intensity Therapy 1.5 - 2.02 . Moderate Intensity Therapy 2.0 - 3.03. High Intensity Therapy(1) 2.5 - 3. 54. High Intensity Therapy(2) 3.0 - 4.05. Panic Value INR > 5.0 [facility] AntonioActivated partial thromboplastin time (aPTT) in platelet poor plasma by coagulation zxmdq4842-79-24 09:00:00* Test Item Value Reference Range Interpretation Comments Activated Partial Thromboplast Time (test code = 66094-7) 26.1 23.8-35.5 [facility] AntonioUrine color mzvnknkvnhkio1410-15-61 09:00:00* Test Item Value Reference Range Interpretation Comments Urine Color (test code = 5778-6) YELLOW YELLOW [facility] AntonioUrine copoacg8920-35-68 09:00:00* Test Item Value Reference Range Interpretation Comments Urine Clarity (test code = 80586-3) CLEAR CLEAR [facility] gravity of Urine by Test strip 2019-11-19 09:00:00* Test Item Value Reference Range Interpretation Comments Urine Specific [place] (test code = 5811-5) >=1.030 1.010-1.02 5 [facility] AntonioUrine pH measurement by automated test ystdi7775-72-53 09:00:00* Test Item Value Reference Range Interpretation Comments Urine pH (test code = 71504-4) 6 5-7 [facility] AntonioUrine leukocyte esterase detection by xojjjqnf0537-16-23 09:00:00* Test Item Value Reference Range Interpretation Comments Urine Leukocyte Esterase (test code = 5799-2) NEGATIVE NEGATIVE [facility] AntonioUrine nitrite emztvracx2258-39-46 09:00:00* Test Item Value Reference Range Interpretation Comments Urine Nitrite (test code = 33194-6) NEGATIVE NEGATIVE [facility] AntonioUrine protein measurement by test strip (mass/volume)2019-11-19 09:00:00* Test Item Value Reference Range Interpretation Comments Urine Protein (test code = 5804-0) NEGATIVE NEGATIVE [facility] AntonioUrine glucose oazuxigaa9038-97-30 09:00:00* Test Item Value Reference Range Interpretation Comments Urine Glucose (UA) (test code = 2349-9) NEGATIVE NEGATIVE [facility] AntonioUrine ketones detection by automated test tznzj4426-13-49 09:00:00* Test Item Value Reference Range Interpretation Comments Urine Ketones (test code = 31428-1) NEGATIVE NEGATIVE [facility] AntonioUrine urobilinogen measurement by test strip (mass/volume)2019-11-19 09:00:00* Test Item Value Reference Range Interpretation Comments Urine Urobilinogen (test code = 78997-3) 0.2 0.2-1 [facility] AntonioUrine total bilirubin measurement (mass/volume)2019-11-19 09:00:00* Test Item Value Reference Range Interpretation Comments Urine Bilirubin (test code = 1978-6) NEGATIVE NEGATIVE [facility] AntonioUrine erythrocytes jsusehgwm6642-38-04 09:00:00* Test Item Value Reference Range Interpretation Comments Urine Blood (test code = 15824-0) SMALL NEGATIVE [facility] AntonioAutomated urine sediment leukocyte count by microscopy (number/high power field)2019-11-19 09:00:00* Test Item Value Reference Range Interpretation Comments Urine WBC (test code = 5821-4) 6-10 0-5 [facility] AntonioErythrocytes detection in urine sediment by light bnbagemozb1695-56-42 09:00:00* Test Item Value Reference Range Interpretation Comments Urine RBC (test code = 48240-4) 6-10 0-5 [facility] AntonioBacteria detection in urine sediment by light bahlxvchea1208-74-22 09:00:00* Test Item Value Reference Range Interpretation Comments Urine Bacteria (test code = 82124-1) MANY NONE [facility] AntonioEpithelial cells detection in urine sediment by light pikfgpjgyh1202-23-72 09:00:00* Test Item Value Reference Range Interpretation Comments Urine Epithelial Cells (test code = 15777-9) MODERATE NONE [facility] AntonioMucus detection in urine sediment by light efenfmoiqu5671-04-36 09:00:00* Test Item Value Reference Range Interpretation Comments Urine Mucus (test code = 8247-9) MANY RARE [facility] AntonioUrine human chorionic gonadotropin (hCG) rzchtkioh2976-11-23 09:00:00* Test Item Value Reference Range Interpretation Comments Urine Test (test code = 2106-3) NEGATIVE NEGATIVE [facility] Taylorerum or plasma sodium measurement (moles/volume)2019-11-19 09:00:00* Test Item Value Reference Range Interpretation Comments Sodium Level (test code = 2951-2) 141 136-145 [facility] Taylorerum or plasma potassium measurement (moles/volume)2019-11-19 09:00:00* Test Item Value Reference Range Interpretation Comments Potassium Level (test code = 2823-3) 3.8 3.5-5.1 [facility] Taylorerum or plasma chloride measurement (moles/volume)2019-11-19 09:00:00* Test Item Value Reference Range Interpretation Comments Chloride Level (test code = 2075-0) 106 98-107 [facility] Taylorerum or plasma carbon dioxide, total measurement (moles/volume)2019-11-19 09:00:00* Test Item Value Reference Range Interpretation Comments Carbon Dioxide Level (test code = 2028-9) 25 22-29 [facility] Taylorerum or plasma anion rzs7245-96-88 09:00:00* Test Item Value Reference Range Interpretation Comments Anion Gap (test code = 76207-1) 13.8 8-16 [facility] Taylorerum or plasma urea nitrogen measurement (mass/volume)2019-11-19 09:00:00* Test Item Value Reference Range Interpretation Comments Blood Urea Nitrogen (test code = 3094-0) 19 7-26 [facility] Taylorerum or plasma creatinine measurement (mass/volume)2019-11-19 09:00:00* Test Item Value Reference Range Interpretation Comments Creatinine (test code = 2160-0) 0.76 0.57-1.11 [facility] Taylorerum or plasma urea nitrogen/creatinine mass vkjkk4025-99-48 09:00:00* Test Item Value Reference Range Interpretation Comments BUN/Creatinine Ratio (test code = 3097-3) 25 6-25 [facility] AntonioEstimated glomerular filtration rate (GFR) bhlnksqdhcnsj0506-55-50 09:00:00* Test Item Value Reference Range Interpretation Comments Estimat Glomerular Filtration Rate (test code = 494956386) > 60 >60 Ranges were taken from the National Kidney Disease Education Program and the [facility] Kidney Foundation literature.Reference ranges:60 or greater: Dcnfsi62-68 ( for 3 consecutive months): Chronic kidney disease 15 or less: Kidney failureChildren's Hospital of San AntonioGlucose ykrgdahcrje8600-91-34 09:00:00* Test Item Value Reference Range Interpretation Comments Glucose Level (test code = RHI9338) 157 74-118 [facility] Taylorerum or plasma calcium measurement (mass/volume)2019-11-19 09:00:00* Test Item Value Reference Range Interpretation Comments Calcium Level (test code = 53566-8) 9.2 8.4-10.2 [facility]lorerum or plasma magnesium measurement (mass/volume)2019-11-19 09:00:00* Test Item Value Reference Range Interpretation Comments Magnesium Level (test code = 70097-8) 1.8 1.3-2.1 [facility] Taylorerum or plasma total bilirubin measurement (mass/volume)2019-11-19 09:00:00* Test Item Value Reference Range Interpretation Comments Total Bilirubin (test code = 1975-2) 0.6 0.2-1.2 [facility] AntonioFluoroscopic procedure less than one hour gaigdome2571-37-00 09:00:00* Test Item Value Reference Range Interpretation Comments Aspartate Amino Transf (AST/SGOT) (test code = Aspartate Amino Transf (AST/SGOT)) 17 5-34 [facility] Taylorerum or plasma alanine aminotransferase measurement (enzymatic activity/volume)2019-11-19 09:00:00* Test Item Value Reference Range Interpretation Comments Alanine Aminotransferase (ALT/SGPT) (test code = 1742-6) 18 0-55 [facility]rum or plasma protein measurement (mass/volume)2019-11-19 09:00:00* Test Item Value Reference Range Interpretation Comments Total Protein (test code = 2885-2) 7.9 6.5-8.1 [facility]rum or plasma albumin measurement (mass/volume)2019-11-19 09:00:00* Test Item Value Reference Range Interpretation Comments Albumin (test code = 1751-7) 4.0 3.5-5.0 [facility] AntonioPlasma globulin measurement (mass/volume) 2019-11-19 09:00:00* Test Item Value Reference Range Interpretation Comments Globulin (test code = 79794-1) 3.9 2.3-3.5 [facility]orerum or plasma albumin/globulin mass cnsol3460-54-58 09:00:00* Test Item Value Reference Range Interpretation Comments Albumin/Globulin Ratio (test code = 1759-0) 1.0 0.8-2.0 [facility]rum or plasma alkaline phosphatase measurement (enzymatic activity/volume)2019-11-19 09:00:00* Test Item Value Reference Range Interpretation Comments Alkaline Phosphatase (test code = 6768-6) 104 40-150 [facility] Taylorerum or plasma creatine kinase measurement (enzymatic activity/volume)2019-11-19 09:00:00* Test Item Value Reference Range Interpretation Comments Creatine Kinase (test code = 2157-6) 48 29-168 [facility] Taylorerum or plasma creatine kinase MB measurement (mass/volume)2019-11-19 09:00:00* Test Item Value Reference Range Interpretation Comments Creatine Kinase MB (test code = 01781-2) 0.70 0-5.0 [facility] AntonioTroponin I measurement by highly sensitive enzyme ncyuzzllhte9827-11-57 09:00:00* Test Item Value Reference Range Interpretation Comments Troponin I (test code = 05391-9) < 0.001 0-[address] [facility]Ser[facility] or plasma amylase measurement (enzymatic activity/volume)2019-11-19 09:00:00* Test Item Value Reference Range Interpretation Comments Amylase Level (test code = 1798-8) 108 25-125 [facility] Taylorerum or plasma lipase measurement (enzymatic activity/volume)2019-11-19 09:00:00* Test Item Value Reference Range Interpretation Comments Lipase (test code = 3040-3) 91 8-78 [facility]
[2019-12-01] MEDS: LEVOFLOXACIN 500MG/D5W 100ML 100 ML IV SCH ×2 (16:41→19:15)
[2019-12-01] MEDS: SODIUM CHLORIDE 0.9% 1000ML 1,000 ML IV SCH (16:41)
--- NOTE | 2019-12-01 17:00 | Consultation ---
DATE OF CONSULTATION: 12/01/2019 HISTORY OF PRESENT ILLNESS: The patient is an otherwise healthy 44-year-old female admitted with recurrent right upper quadrant pain, nausea, and vomiting, which is described as severe. She was admitted. She was recently seen in the emergency room and sent home to follow up as an outpatient, but she did not do so and developed severe pain again today reason for which she came back to the emergency room. The pain is described in the epigastric area and severe, intolerable, associated with nausea and vomiting. The patient has an ultrasound that revealed cholelithiasis with normal duct that was performed on 11/19/2019. Labs show normal liver chemistries, normal amylase, normal electrolytes. White count is 8.9, normal hemoglobin and normal platelets. PAST MEDICAL HISTORY: Unremarkable. PAST SURGICAL HISTORY: Significant for . ALLERGIES: SHE HAS NO KNOWN ALLERGIES. MEDICATIONS: She does not take any medicines. SOCIAL HISTORY: Does not drink. Does not smoke. PHYSICAL EXAMINATION: GENERAL: Revealed a 44-year-old female, awake, alert, and she is afebrile. VITAL SIGNS: Stable. HEAD, EYES, EARS, NOSE, and THROAT: Reveals no acute process. LUNGS: Clear. HEART: Reveals regular sinus rhythm. ABDOMEN: Reveals some mild right upper quadrant tenderness. There are no palpable masses. No hernias. NEUROLOGICAL: Nonfocal. ASSESSMENT: Recurrent right upper quadrant pain, severe nausea, vomiting, and cholecystitis. The plan is to proceed with laparoscopic cholecystectomy, possible open cholecystectomy. The indication, benefits, and risks have been discussed in detail with the patient. Alternatives to surgical treatment have also been discussed. The patient will be admitted for intravenous antibiotics and laparoscopic cholecystectomy. We will keep the patient n.p.o. MD FRANCES Mata/SETER /[id number]
[2019-12-01 17:04] LABS: CLARITY,URINE HAZY (CLEAR); COLOR,URINE YELLOW (YELLOW); KETONES,URINE 2+ (NEGATIVE); LEUKOCYTE ESTERASE ,URINE TRACE (NEGATIVE); NITRITE,URINE NEGATIVE (NEGATIVE); PROTEIN,URINE DIPSTICK NEGATIVE (NEGATIVE); URINE UROBILINOGEN 0.2 mg/dL (0.2 - 1)
[2019-12-01 17:05] LABS: BILIRUBIN,URINE NEGATIVE (NEGATIVE)
[2019-12-01 17:16] LABS: BACTERIA,URINE FEW /HPF; EPITHELIAL CELLS,URINE MODERATE /LPF
--- NOTE | 2019-12-01 17:30 | NUR ---
CONSENT SIGNED BY PT. AND PLACED ON THE CHART
[2019-12-01 19:32] VITALS: BP 118/69
--- NOTE | 2019-12-01 19:36 | NUR ---
UTILIZED CULTURAL LINK PIGSKIN TRIMMER GRAY, ID#[id number].
[2019-12-01 20:00] VITALS: BP 118/69
[2019-12-01 20:32] VITALS: BP 118/69
[2019-12-02] VITALS (10 sets, daily range): BP systolic 102–136; BP diastolic 53–88
[2019-12-02] MEDS: SODIUM CHLORIDE 0.9% 1000ML 1,000 ML IV SCH ×3 (00:45→21:35)
--- NOTE | 2019-12-02 01:56 | NUR ---
SPOKE TO DR. BRANDON, CANCEL TELEMETRY ORDER
--- NOTE | 2019-12-02 02:13 | NUR ---
TELE D/C PER MD ORDER.
[2019-12-02 04:49] LABS: BASOPHILS % 0.2 % (0.0-1.0); EOSINOPHILS # (AUTO) 0.1 (0.0-0.4); EOSINOPHILS % 0.8 % (0.0-6.0); HEMATOCRIT 37.2 % (34.2-44.1); HEMOGLOBIN 12.3 g/dL (12.0-16.0); LYMPHOCYTES # (AUTO) 1.9 (1.0-3.2); LYMPHOCYTES % 19.5 % (18.0-39.1); MEAN CORPUSCULAR HEMOGLOBIN 30.8 pg (28-32); MEAN CORPUSCULAR HGB CONC 33.1 g/dL (31-35); MEAN CORPUSCULAR VOLUME 93.2 fL (81-99); MONOCYTES # (AUTO) 0.7 (0.2-0.8); MONOCYTES % 7.5 % (4.4-11.3); NEUTROPHILS # (AUTO) 6.8 (2.1-6.9); NEUTROPHILS % 71.7 % (38.7-80.0); PLATELET COUNT 243 x10e3/uL (140-360); RED BLOOD COUNT 3.99 x10e6/uL (3.6-5.1)
[2019-12-02 05:04] LABS: ANION GAP 12.4 mmol/L (8-16); BLOOD UREA NITROGEN 9 mg/dL (7-26); BUN/CREATININE RATIO 14 (6-25); CALCIUM 8.3 mg/dL (8.4-10.2); CARBON DIOXIDE 20 mmol/L (22-29); CHLORIDE 111 mmol/L (98-107); CREATININE, SERUM 0.65 mg/dL (0.57-1.11); EST GLOMERULAR FILTRATION RATE > 60 ML/MIN (60-); GLUCOSE 88 mg/dL (74-118); POTASSIUM 3.4 mmol/L (3.5-5.1); SODIUM 140 mmol/L (136-145)
--- NOTE | 2019-12-02 06:25 | NUR ---
PROVIDED BEDSIDE EDUCATION REGARDING NEED FOR HIBICLENS BATH BEFORE SURGERY. VERBALIZES UNDERSTANDING.
--- NOTE | 2019-12-02 07:08 | NUR ---
REPORT GIVEN TO DAYSHIFT NURSE. ALERT AND ORIENTED. NO SIGNS IV INFILTRATION. BED LOCKED AND IN LOW POSITION. CALL LIGHT WITHIN REACH.
--- NOTE | 2019-12-02 07:10 | NUR ---
received pt from previous shift. pt taking shower. npo for surgery this am.
[2019-12-02] MEDS: LEVOFLOXACIN 500MG/D5W 100ML 100 ML IV SCH (08:25)
--- NOTE | 2019-12-02 08:30 | NUR ---
pt sent to or by or nurse through stretcher
[2019-12-02] MEDS ORDERED: BUPIVACAINE 0.25% 30ML SDV INJ ONE (08:52)
[2019-12-02] MEDS ORDERED: FENTANYL CITRATE/PF 100MCG/2 ML INJ ONE (10:53)
--- NOTE | 2019-12-02 11:16 | NUR ---
received pt from pacu, pt trnsferred from stretcher to bed, pt has 4 abd sites dry and intact. pt scd's connected, vs obtained
[2019-12-02] MEDS: ONDANSETRON HCL INJ 2MG/ML 2ML 2 MG/ML VIAL IV PRN ×2 (11:20→17:02)
[2019-12-02] MEDS: HYDROMORPHONE 1MG/1ML INJ IV PRN ×2 (11:20→17:02)
--- NOTE | 2019-12-02 11:22 | NUR ---
dr palomo to see pt. pt o to be dc if tolerating clear liquids.
--- NOTE | 2019-12-02 11:38 | Operative Report ---
DATE OF PROCEDURE: 12/02/2019 SURGEON: Sergio Del Valle MD PREOPERATIVE DIAGNOSIS: Cholelithiasis, cholecystitis. POSTOPERATIVE DIAGNOSIS: Cholelithiasis, cholecystitis. PROCEDURE PERFORMED: Laparoscopic cholecystectomy. ANESTHESIA: General. ESTIMATED BLOOD LOSS: Minimal. DRAINS: None. COMPLICATIONS: None. INDICATION AND FINDINGS: The patient is a 44-year-old female admitted through the emergency room, complaining of recurrent abdominal pain. She was a known case of gallstones. Liver chemistries were normal. No history of jaundice. Intraoperative findings were multiple large stones in the gallbladder with somewhat thickened wall, consistent with chronic cholecystitis. There was no ductal dilatation. DESCRIPTION OF PROCEDURE: With the patient lying on the operative table in the supine position after administration of general anesthesia, she was prepped and draped for laparoscopic cholecystectomy. The procedure was begun by establishing the pneumoperitoneum in the right upper quadrant midclavicular line because of previous and pneumoperitoneum, insufflated to 15 mm of pressure. Then, the 5 mm trocar placed in that location. We then placed an umbilical port as well as the subxiphoid and right port using 10 mm sized and right anterior axillary line trocar using a 5 mm trocar. The procedure was then begun by doing laparoscopy in the right upper quadrant. The gallbladder contained several large stones. We retracted the gallbladder cephalad using grasping forceps, then the dissection was begun on the neck of the gallbladder until we exposed the cystic duct. The junction with the common bile duct was seen 360 degrees circumferentially. The cystic artery was also identified, then we transected both structures between titanium clips. Then, we took the gallbladder down the combination of electrocautery dissection and then detached it, placed it in an endobag and removed through the umbilical port. After we did that, we inspected the operative field. There was some minor oozing coming from the edge of the liver that was cauterized. The gallbladder bed fossa and right upper quadrant were again irrigated. There was no bleeding seen or bile leak. We placed a Surgicel in the gallbladder bed fossa with oozing was found and then we released the pneumoperitoneum under direct vision with the camera. There was no bleeding. Then, we closed the wound using 0-Vicryl for the umbilical fascia, 3-0 Vicryl for the subcutaneous tissue in that location as well as the subxiphoid port and the skin of all the ports was closed using maico. 0.25% Marcaine with epinephrine was given as local block. The patient tolerated the procedure well, and was taken to recovery room in stable condition. MD FRANCES Mata/ESTER /[id number]
--- NOTE | 2019-12-02 12:35 | NUR ---
pt sleeping, pt sipped little apple juice but states she wants to wait later to eat due to being sleepy from pain meds
--- NOTE | 2019-12-02 12:40 | NUR ---
pt had alvarez during surgery, dc'd at 1120. pt dtv at 1930. dr palomo states pt does not have to void before dc.
[2019-12-02] MEDS ORDERED: DEXAMETHASONE SOD PHOS INJ 4 MG/ML VIAL ONE (13:07)
[2019-12-02] MEDS ORDERED: SEVOFLURANE INHAL SOLN 250 ML PEN BTL ONE (13:07)
[2019-12-02] MEDS ORDERED: KETOROLAC TROMETHAMINE 30 MG/ML VIAL ONE (13:07)
[2019-12-02] MEDS ORDERED: NEOSTIGMINE 1 MG/ML 10ML VIAL ONE (13:07)
[2019-12-02] MEDS ORDERED: GLYCOPYRROLATE INJ 0.2 MG/ML VIAL ONE (13:07)
[2019-12-02] MEDS ORDERED: ROCURONIUM BROMIDE 10 MG/ML 5ML VIAL IV ONE (13:07)
[2019-12-02] MEDS ORDERED: ONDANSETRON HCL INJ 2MG/ML 2ML 2 MG/ML VIAL ONE (13:07)
[2019-12-02] MEDS ORDERED: LIDOCAINE HCL 2% LOCAL INJ 5 ML SDV VIAL INJ ONE (13:07)
[2019-12-02] MEDS ORDERED: PROPOFOL IV EMULSION 10 MG/ML 20 ML VIAL ONE (13:07)
--- NOTE | 2019-12-02 13:20 | NUR ---
pt set up to eat clear liquid diet
--- NOTE | 2019-12-02 13:40 | NUR ---
Spoke with pt's son who provided information for DPA. Self pay packet provided with community resources, provided gold card application to access healthcare through [facility]
[2019-12-02] MEDS: HYDROCODONE/APAP 7.5MG-325MG 1 EA TAB PO PRN ×2 (14:36→21:46)
[2019-12-02] MEDS ORDERED: LEVOFLOXACIN 500MG/D5W 100ML 100 ML IV SCH (16:00)
--- NOTE | 2019-12-02 17:00 | NUR ---
pt states pain 7-8. meds given, abd assessed, soft, tender near incision site, sites dry and intact, lower pubic area near bladder soft, pt dtv at 1930. pt states she does not need to use restroom at time
--- NOTE | 2019-12-02 17:02 | NUR ---
pt tolerating clear liquids, no n/v, pt still has pain above 5. iv and po meds given intermittently
--- NOTE | 2019-12-02 19:32 | NUR ---
RECEIVED PT IN BED AOX3 ,PAIN SCALE 3/10 .PT HASPT HAS 4 ABD SITES ,CALL LIGHT WITH INREACH ,CONTINUE TO MONITOR
[2019-12-02] MEDS: FAMOTIDINE 20 MG TAB PO SCH (21:00)
[2019-12-03] VITALS: BP 111/62
[2019-12-03 04:29] VITALS: BP 110/60
[2019-12-03 06:18] LABS: BASOPHILS % 0.1 % (0.0-1.0); EOSINOPHILS % 0.2 % (0.0-6.0); HEMATOCRIT 34.7 % (34.2-44.1); HEMOGLOBIN 11.3 g/dL (12.0-16.0); LYMPHOCYTES % 24.4 % (18.0-39.1); MEAN CORPUSCULAR HEMOGLOBIN 30.7 pg (28-32); MEAN CORPUSCULAR HGB CONC 32.6 g/dL (31-35); MEAN CORPUSCULAR VOLUME 94.3 fL (81-99); MONOCYTES # (AUTO) 0.8 (0.2-0.8); MONOCYTES % 9.3 % (4.4-11.3); NEUTROPHILS # (AUTO) 5.5 (2.1-6.9); NEUTROPHILS % 65.6 % (38.7-80.0); PLATELET COUNT 221 x10e3/uL (140-360); RED BLOOD COUNT 3.68 x10e6/uL (3.6-5.1); RED CELL DISTRIBUTION WIDTH 13.2 % (11.7-14.4)
[2019-12-03 06:33] LABS: ANION GAP 10.9 mmol/L (8-16); BLOOD UREA NITROGEN 9 mg/dL (7-26); BUN/CREATININE RATIO 14 (6-25); CALCIUM 8.2 mg/dL (8.4-10.2); CARBON DIOXIDE 21 mmol/L (22-29); CHLORIDE 109 mmol/L (98-107); CREATININE, SERUM 0.64 mg/dL (0.57-1.11); EST GLOMERULAR FILTRATION RATE > 60 ML/MIN (60-); GLUCOSE 77 mg/dL (74-118); POTASSIUM 3.9 mmol/L (3.5-5.1); SODIUM 137 mmol/L (136-145)
--- NOTE | 2019-12-03 06:33 | NUR ---
PT C/O PAIN X1 .PT RESTING IV INFUSING PT VOIDED AT 1830 .CALL LIGHT WITH IN REACH ,CONTINUE TO MONITOR
--- NOTE | 2019-12-03 07:00 | NUR ---
RECEIVED PATIENT RESTING IN BED NO S/S OF DISTRESS. BED LOW, WHEELS LOCKED, SIDE RAILS X2. CALL LIGHT IN REACH WILL CONTINUE TO MONITOR PATIENT.
--- NOTE | 2019-12-03 07:14 | NUR ---
BEDSIDE REPORT GIVEN TO THE ONCOMING NURSE
[2019-12-03] MEDS: SODIUM CHLORIDE 0.9% 1000ML 1,000 ML IV SCH (07:50)
[2019-12-03] MEDS: HYDROCODONE/APAP 7.5MG-325MG 1 EA TAB PO PRN (07:56)
[2019-12-03] MEDS: FAMOTIDINE 20 MG TAB PO SCH (07:56)
[2019-12-03 08:14] VITALS: BP 102/71
[2019-12-03 08:19] VITALS: BP 102/71
[2019-12-03] MEDS ORDERED: FAMOTIDINE20 MG PO (12:52)
[2019-12-03] MEDS ORDERED: CEFUROXIME250 MG PO (12:52)
[2019-12-03] MEDS ORDERED: TYLENOL # 31 EA PO (13:14)
--- NOTE | 2019-12-03 13:16 | Discharge Summary ---
The patient has no primary care provider. CONSULTING PHYSICIAN: Dr. Angelina Del Valle PROCEDURE PERFORMED: Laparoscopic cholecystectomy. ADMITTING DIAGNOSIS: Acute cholecystitis. DISCHARGE DIAGNOSIS: Acute cholecystitis, status post laparoscopic cholecystectomy. BRIEF HISTORY: Ms. Mckinney is a 44-year-old lady, presenting with abdominal pain, right upper quadrant with nausea and vomiting for about 24 hours. The patient had a similar event about a week ago that resolved. The ultrasound and CT scan showed some acute cholecystitis. HOSPITAL COURSE: The patient was admitted to the floor, taken rapidly to the OR by Dr. Del Valle. Laparoscopic cholecystectomy was performed without incident. The patient had an uneventful postoperative course and was having bowel movements, tolerating a diet and was discharged to home to resume a regular diet. Activity as tolerated. She will continue with Pepcid 20 mg before breakfast for 30 days as well as cefuroxime 500 mg twice a day for five days and Tylenol No.3 as needed for pain. She needs to follow up with Dr. Del Valle in about one week. MD KARLEE Moreno/ESTER /[id number]
--- NOTE | 2019-12-03 13:40 | NUR ---
Removed patients IV. Catheter tip intact and pressure dressing applied.
--- NOTE | 2019-12-03 14:20 | NUR ---
Patient discharged from facility in stable condition. Gathered all personal belongings, discharge instructions and follow up information. No s/s of distress leaving facility.
== END 2019-12-03 14:20 | disposition home or self-care (01) ==
LOC: ER 13:59 → INTOOBSV 15:51 → ERHOLD 15:51 → MED/SURG 19:28
PROVIDERS: ADMIT Internal Medicine; ATTEND Internal Medicine
DX: K80.12 Calculus of gallbladder with acute and chronic cholecystitis without obstruction (principal); Z11.59 Encounter for screening for other viral diseases
CPT/HCPCS: 36415 ×3; 47562; 76705; 80048 ×2; 80053; 81001; 83690; 84702; 85025 ×3; 88304; 93005; 99284; C1766; G0378 ×3; J1100; J1170; J1885; J1956; J2001; J2250; J2270; J2405 ×2; J2704; J2710; J3010 ×2; J7030 ×3; U0002